=== PATIENT | male | born 1945 | race Caucasian/White ===

== ENCOUNTER 2018-02-21 05:04 | Day surgery (SDC) | payer MEDICARE, OTHER ==
[2018-02-16 16:21] LABS: BASOPHILS # (AUTO) 0.1 X10'3 (0-0.2); BASOPHILS % (AUTO) 0.8 % (0-1); EOSINOPHILS # (AUTO) 0.1 X10'3 (0-0.9); EOSINOPHILS % (AUTO) 1.1 % (0-6); HEMATOCRIT 41.9 % (42.0-52.0); HEMOGLOBIN 14.3 g/dl (14.0-17.9); LYMPHOCYTES # (AUTO) 1.9 X10'3 (1.1-4.8); LYMPHOCYTES % (AUTO) 23.3 % (21-51); MEAN CORPUSCULAR HEMOGLOBIN 32.6 PG (27.0-31.0); MEAN CORPUSCULAR HGB CONC 34.1 % (33.0-36.5); MEAN CORPUSCULAR VOLUME 95.7 FL (78-98); MEAN PLATELET VOLUME 8.5 FL (7.4-10.4); MONOCYTES # (AUTO) 0.7 X10'3 (0-0.9); MONOCYTES % (AUTO) 9.2 % (2-12); NEUTROPHILS # (AUTO) 5.4 X10'3 (1.8-7.7); NEUTROPHILS % (AUTO) 65.6 % (42-75); PLATELET COUNT 241 X10'3 (140-440); RED BLOOD COUNT 4.38 X10'6 (4.70-6.10); RED CELL DISTRIBUTION WIDTH 13.5 % (11.5-14.5); WHITE BLOOD COUNT 8.2 X10'3 (4.5-11.0)
[2018-02-16 16:32] LABS: ALBUMIN 3.9 G/DL (3.4-5.0); ANION GAP 9 (8-16); BLOOD UREA NITROGEN 16 MG/DL (7-18); BUN/CREATININE RATIO 15.1 (5.4-32.0); CALCIUM 9.4 MG/DL (8.5-10.1); CHLORIDE 110 MMOL/L (99-107); CREATININE 1.06 MG/DL (0.60-1.10); GLUCOSE 102 MG/DL (70-104); PARTIAL THROMBOPLASTIN TIME 27 SECONDS (22-32); POTASSIUM 4.1 MMOL/L (3.5-5.1); PROTHROMBIN TIME 9.9 SECONDS (9.0-12.0); SODIUM 144 MMOL/L (135-145); TOTAL CARBON DIOXIDE 24.6 MMOL/L (24-32); eGFR 69 ML/MIN
[~2018-02-21] VITALS: Ht 182.9 cm; Wt 98.4 kg
[2018-02-21] VITALS (16 sets, daily range): BP systolic 129–155; BP diastolic 56–88
[2018-02-21] MEDS ORDERED: normal saline 1000ml 1,000 ML IV ONE (05:25)
[2018-02-21] MEDS ORDERED: diphenhydrAMINE 25mg capsule PO ONE (05:25)
[2018-02-21] MEDS ORDERED: LORazepam 0.5 MG tablet PO ONE (05:30)
[2018-02-21] MEDS ORDERED: LOSA100T28 PO (05:49)
[2018-02-21] MEDS ORDERED: PRAV40TA3 PO (05:49)
[2018-02-21] MEDS ORDERED: CLON-528 PO (05:49)
[2018-02-21] MEDS ORDERED: ESCI20TA PO (05:49)
[2018-02-21] MEDS ORDERED: DILT240C51 PO (05:49)
[2018-02-21] MEDS ORDERED: midazolam 2 mg/2 ml injection ONE (05:55)
[2018-02-21] MEDS ORDERED: iohexol 350MG/ML 100ml bottle IV ONE (05:56)
[2018-02-21] MEDS ORDERED: LIDOcaine 1% w/EPI 1:100,000 30ml vial (MDV) ONE (05:56)
[2018-02-21] MEDS ORDERED: fentaNYL/PF 50MCG/1 ML 2ML syringe ONE (05:56)
== END 2018-02-21 12:10 | disposition home or self-care (01) ==
LOC: SSTAY O 05:04
PROVIDERS: ATTEND Internal Medicine Interventional Cardiology
DX: I25.118 Atherosclerotic heart disease of native coronary artery with other forms of angina pectoris (principal); F41.9 Anxiety disorder, unspecified; I10 Essential (primary) hypertension; I44.7 Left bundle-branch block, unspecified; B19.20 Unspecified viral hepatitis C without hepatic coma; F32.9 Major depressive disorder, single episode, unspecified; Z90.89 Acquired absence of other organs; Z87.891 Personal history of nicotine dependence; Z86.73 Personal history of transient ischemic attack (TIA), and cerebral infarction without residual deficits; Z79.899 Other long term (current) drug therapy
CPT/HCPCS: 36415; 80048; 85025; 85610; 85730; 93458; 99152; A6257; C1760; C1769; J1644; J2250; J3010; J3490; J7030; Q0163; Q9967; A4620

== ENCOUNTER 2018-11-09 13:19 | Emergency (ER) | payer MEDICARE, OTHER ==
[~2018-11-09] VITALS: Ht 182.9 cm; Wt 104.0 kg
[~2018-11-09 13:19] MED LIST: CLON-528 PO; DILT240C51 PO; ESCI20TA PO; LOSA100T57 PO; PRAV40TA3 PO
--- NOTE | 2018-11-09 14:02 | NUR ---
Not in lobby at 1400
[2018-11-09 14:26] VITALS: BP 177/83
[2018-11-09 16:14] LABS: BASOPHILS % (AUTO) 0.4 % (0-1); EOSINOPHILS # (AUTO) 0.1 X10'3 (0-0.9); EOSINOPHILS % (AUTO) 0.7 % (0-6); HEMATOCRIT 43.8 % (42.0-52.0); HEMOGLOBIN 14.9 g/dl (14.0-17.9); LYMPHOCYTES # (AUTO) 1.4 X10'3 (1.1-4.8); LYMPHOCYTES % (AUTO) 17.7 % (21-51); MEAN CORPUSCULAR HEMOGLOBIN 32.2 PG (27.0-31.0); MEAN CORPUSCULAR HGB CONC 33.9 g/dL (33.0-36.5); MEAN PLATELET VOLUME 8.6 FL (7.4-10.4); MONOCYTES # (AUTO) 0.6 X10'3 (0-0.9); NEUTROPHILS # (AUTO) 5.6 X10'3 (1.8-7.7); NEUTROPHILS % (AUTO) 73.2 % (42-75); PLATELET COUNT 275 X10'3 (140-440); RED BLOOD COUNT 4.62 X10'6 (4.70-6.10); RED CELL DISTRIBUTION WIDTH 13.4 % (11.5-14.5); WHITE BLOOD COUNT 7.7 X10'3 (4.5-11.0)
[2018-11-09] MEDS ORDERED: ibuprofen tablet 400 MG TABLET PO ONE (16:25)
[2018-11-09] MEDS ORDERED: METH-360 PO (17:05)
[2018-11-09] MEDS ORDERED: IBUP-1985 PO (17:05)
[2018-11-09 17:23] LABS: ALANINE AMINOTRANSFERASE 28 U/L (12-78); ALBUMIN 4.4 G/DL (3.4-5.0); ALKALINE PHOSPHATASE 85 IU/L (46-116); ANION GAP 9 (8-16); ASPARTATE AMINO TRANSFERASE 28 U/L (10-37); BILIRUBIN,TOTAL 0.7 MG/DL (0.1-1.0); BLOOD UREA NITROGEN 13 MG/DL (7-18); BUN/CREATININE RATIO 10.9 (5.4-32.0); CALCIUM 9.6 MG/DL (8.5-10.1); CHLORIDE 104 MMOL/L (99-107); CREATININE 1.19 MG/DL (0.60-1.10); GLUCOSE 99 MG/DL (70-104); POTASSIUM 4.4 MMOL/L (3.5-5.1); SODIUM 141 MMOL/L (135-145); TOTAL CARBON DIOXIDE 27.8 MMOL/L (24-32); TOTAL PROTEIN 8.9 G/DL (6.4-8.2); eGFR 60 ML/MIN
== END 2018-11-09 17:24 | disposition home or self-care (01) ==
LOC: ER 13:20
DX: S16.1XXA Strain of muscle, fascia and tendon at neck level, initial encounter (principal); B34.9 Viral infection, unspecified; F12.90 Cannabis use, unspecified, uncomplicated; Z79.899 Other long term (current) drug therapy; X58.XXXA Exposure to other specified factors, initial encounter; Y93.89 Activity, other specified; Y92.89 Other specified places as the place of occurrence of the external cause; Y99.9 Unspecified external cause status
CPT/HCPCS: 36415; 80053; 85025; 87502; 87503; 93005; 99284